=== PATIENT | male | born 1945 | race Caucasian/White ===

== ENCOUNTER → 2016-04-28 | Outpatient (CLI) | payer MEDICARE, OTHER | DX: E11.65 Type 2 diabetes mellitus with hyperglycemia (principal); E78.2 Mixed hyperlipidemia; Z79.899 Other long term (current) drug therapy ==

== ENCOUNTER 2016-09-08 08:47 | Outpatient (CLI) | payer MEDICARE, OTHER ==
[2016-09-08 13:00] LABS: HEMOGLOBIN A1C 0.92 g/dL
== END 2016-09-08 08:48 | disposition home or self-care (01) ==
LOC: LAB.R 08:47
PROVIDERS: ATTEND Internal Medicine
DX: E11.9 Type 2 diabetes mellitus without complications (principal)
CPT/HCPCS: 83036

== ENCOUNTER 2016-10-20 08:00 | Outpatient (CLI) | payer MEDICARE ==
[2016-10-20 19:33] LABS: BUN - BLOOD UREA NITROGEN 14 mg/dL (6-20); CALCIUM 9.3 mg/dL (8.5-10.3); CARBON DIOXIDE - CO2 25 mmol/L (21-32); CHLORIDE 105 mmol/L (101-111); CHOL/HDL RATIO 4.3 (<5.0); CHOLESTEROL 197 mg/dL; GFR - MDRD 74 (>89); GLUCOSE 142 mg/dL (70-100); HDL CHOLESTEROL 46 mg/dL; LDL CHOLESTEROL,DIRECT 119 mg/dL; LDL/HDL RATIO 2.5 (<3.6); POTASSIUM 4.3 mmol/L (3.5-5.0); SODIUM 138 mmol/L (135-145); TRIGLYCERIDES 174 mg/dL; VLDL CHOLESTEROL 35 mg/dL
== END 2016-10-20 08:01 | disposition home or self-care (01) ==
LOC: LAB.R 08:00
PROVIDERS: ATTEND Internal Medicine Cardiovascular Disease
DX: E78.5 Hyperlipidemia, unspecified (principal); Z79.899 Other long term (current) drug therapy
CPT/HCPCS: 80048; 80061; 82550; 84450; 84460

== ENCOUNTER 2016-11-16 19:45 | Outpatient (CLI) | payer MEDICARE, OTHER ==
--- NOTE | 2016-11-17 10:16 | Ultrasound Report ---
LEFT GROIN ULTRASOUND: 11/16/2016 CLINICAL INDICATION: Left groin pain. TECHNIQUE: Real-time scanning was performed with billing representative static images obtained. FINDINGS: Ultrasound of the region of pain identified by the patient was performed. There is no renae dence of a hernia. No adenopathy is identified. IMPRESSION: NO EVIDENCE OF LEFT INGUINAL OR GROIN HERNIA. NO SONOGRAPHIC ABNORMALITY IN THE REGION OF PAIN IDENTIFIED BY THE PATIENT. JOB #: [id number] EXT JOB #:[id number]
== END 2016-11-16 19:46 | disposition home or self-care (01) ==
LOC: DI 19:45
PROVIDERS: ATTEND Physician Assistant Medical
DX: R10.32 Left lower quadrant pain (principal)
CPT/HCPCS: 76857

== ENCOUNTER 2017-04-12 08:00 | Outpatient (CLI) | payer MEDICARE, OTHER ==
[2017-04-12 14:48] LABS: HEMOGLOBIN A1C 1.01 g/dL; HEMOGLOBIN A1C % 7.9 % (4.6-6.2)
== END 2017-04-12 08:01 | disposition home or self-care (01) ==
LOC: LAB.R 08:00
PROVIDERS: ATTEND Physician Assistant Medical
DX: E11.9 Type 2 diabetes mellitus without complications (principal); Z79.899 Other long term (current) drug therapy
CPT/HCPCS: 82947; 83036

== ENCOUNTER 2017-10-18 08:00 | Outpatient (CLI) | payer MEDICARE, OTHER ==
[2017-10-18 14:02] LABS: ALBUMIN 4.1 g/dL (3.2-5.5); ALBUMIN/GLOBULIN RATIO 1.4 (1.0-2.2); ALKALINE PHOSPHATASE 75 IU/L (42-121); ALT ALANINE AMINOTRANSFERASE 28 IU/L (10-60); AST ASPARTATE AMINOTRANSFERASE 29 IU/L (10-42); BILIRUBIN,TOTAL 1.3 mg/dL (0.2-1.0); BUN - BLOOD UREA NITROGEN 16 mg/dL (6-20); CARBON DIOXIDE - CO2 23 mmol/L (21-32); CHLORIDE 104 mmol/L (101-111); CHOL/HDL RATIO 3.3 (<5.0); CHOLESTEROL 136 mg/dL; GFR - MDRD 74 (>89); GLUCOSE 144 mg/dL (70-100); HDL CHOLESTEROL 41 mg/dL; LDL CHOLESTEROL,CALCULATED 71 mg/dL; LDL/HDL RATIO 1.7 (<3.6); SODIUM 135 mmol/L (135-145); VLDL CHOLESTEROL 24 mg/dL
[2017-10-18 14:07] LABS: BASOPHILS % (AUTO) 0.4 %; EOSINOPHILS # (AUTO) 0.1 10^3/uL (0.0-0.7); EOSINOPHILS % (AUTO) 2.8 %; HGB - HEMOGLOBIN 15.6 g/dL (14.0-18.0); LYMPHOCYTES # (AUTO) 1.4 10^3/uL (1.5-3.5); LYMPHOCYTES % (AUTO) 27.3 %; MEAN CORPUSCULAR HEMOGLOBIN 30.8 pg (27.0-31.0); MEAN CORPUSCULAR HGB CONC 34.2 g/dL (32.0-36.0); MEAN CORPUSCULAR VOLUME 90.2 fL (80.0-94.0); MONOCYTES # (AUTO) 0.6 10^3/uL (0.0-1.0); MONOCYTES % (AUTO) 11.6 %; NEUTROPHILS # (AUTO) 2.9 10^3/uL (1.5-6.6); NEUTROPHILS % (AUTO) 57.9 %; PLT - PLATELET COUNT 274 10^3/uL (130-450); RED BLOOD COUNT 5.08 10^6/uL (4.70-6.10); RED CELL DISTRIBUTION WIDTH 12.6 % (12.0-15.0)
[2017-10-18 14:53] LABS: HB2 TOTAL 16.9 g/dL; HEMOGLOBIN A1C 1.05 g/dL; HEMOGLOBIN A1C % 7.8 % (4.6-6.2)
== END 2017-10-18 08:01 | disposition home or self-care (01) ==
LOC: LAB.R 08:00
PROVIDERS: ATTEND Internal Medicine
DX: I25.10 Atherosclerotic heart disease of native coronary artery without angina pectoris (principal); R03.0 Elevated blood-pressure reading, without diagnosis of hypertension; E78.5 Hyperlipidemia, unspecified; Z79.899 Other long term (current) drug therapy; E11.9 Type 2 diabetes mellitus without complications; Z12.5 Encounter for screening for malignant neoplasm of prostate
CPT/HCPCS: 80053; 80061; 83036; 84443; 85025; G0103; 83721; 84153

== ENCOUNTER 2018-02-15 08:41 | Outpatient (CLI) | payer MEDICARE, OTHER ==
[2018-02-15 16:58] LABS: HB2 TOTAL 17.3 g/dL; HEMOGLOBIN A1C 1.08 g/dL; HEMOGLOBIN A1C % 7.9 % (4.6-6.2)
== END 2018-02-15 08:42 | disposition home or self-care (01) ==
LOC: LAB.R 08:41
PROVIDERS: ATTEND Internal Medicine
DX: E11.9 Type 2 diabetes mellitus without complications (principal)
CPT/HCPCS: 83036

== ENCOUNTER 2018-05-17 08:00 | Outpatient (CLI) | payer MEDICARE, OTHER ==
[2018-05-17 14:09] LABS: HB2 TOTAL 17.5 g/dL; HEMOGLOBIN A1C 1.1 g/dL; HEMOGLOBIN A1C % 7.9 % (4.6-6.2)
[2018-05-17 14:13] LABS: ALT ALANINE AMINOTRANSFERASE 34 IU/L (10-60); AST ASPARTATE AMINOTRANSFERASE 27 IU/L (10-42); CHOL/HDL RATIO 3.8 (<5.0); CHOLESTEROL 145 mg/dL; GLUCOSE 158 mg/dL (70-100); HDL CHOLESTEROL 38 mg/dL; LDL CHOLESTEROL,CALCULATED 76 mg/dL; VLDL CHOLESTEROL 31 mg/dL
== END 2018-05-17 23:59 | disposition home or self-care (01) ==
LOC: LAB.R 08:00
PROVIDERS: ATTEND Internal Medicine
DX: I25.10 Atherosclerotic heart disease of native coronary artery without angina pectoris (principal); E11.9 Type 2 diabetes mellitus without complications
CPT/HCPCS: 80061; 82947; 83036; 83721; 84450; 84460

== ENCOUNTER 2018-07-18 13:45 | Outpatient (CLI) | payer MEDICARE, OTHER | END 2018-07-18 13:46 | disposition home or self-care (01) | LOC: NS 13:45 | PROVIDERS: ATTEND Physician Assistant | DX: Z71.3 Dietary counseling and surveillance (principal); E11.9 Type 2 diabetes mellitus without complications | CPT/HCPCS: 97802 ==

== ENCOUNTER 2020-01-15 16:02 | Outpatient (CLI) | payer MEDICARE, OTHER ==
--- NOTE | 2020-01-15 16:53 | XRAY Report ---
PROCEDURE: Shoulder 3 View RT INDICATIONS: PAIN IN UNSPECIFIED SHOULDER TECHNIQUE: 3 views of the shoulder were acquired. COMPARISON: None. FINDINGS: Bones: No fractures or dislocations. No suspicious bony lesions. Visualized ribs appear intact. M oderate acromioclavicular degenerative narrowing. Soft tissues: No suspicious soft tissue calcifications. IMPRESSION: Moderate acromioclavicular degenerative narrowing. Reviewed by: Arely Jordan MD on 01/15/2020 4:52 PM PDT Approved by: Arely Jordan MD on 01/15/2020 4:52 PM PDT Station ID: [id number]
--- NOTE | 2020-01-15 16:54 | XRAY Report ---
PROCEDURE: Cervical Spine 2 View INDICATIONS: PAIN IN UNSPECIFIED SHOULDER TECHNIQUE: 3 view(s) of the cervical spine were acquired. COMPARISON: None. FINDINGS: Bones: No fractures or dislocations to the C7-T1 level. The lateral masses of C1 appear intact on t he odontoid view. No suspicious bony lesions. There is trace retrolisthesis of C3 on C4. Severe dis c space narrowing is present at C3-4. Intimal osteophytes are noted at C3. Multilevel uncovertebral h ypertrophy is present. Soft tissues: No prevertebral soft tissue swelling. IMPRESSION: Degenerative changes most notable at C3-4 as above. Reviewed by: Arely Jordan MD on 01/15/2020 4:53 PM PDT Approved by: Arely Jordan MD on 01/15/2020 4:53 PM PDT Station ID: [id number]
--- NOTE | 2020-01-15 17:11 | XRAY Report ---
PROCEDURE: Thoracic Spine 2 View INDICATIONS: PAIN IN UNSPECIFIED SHOULDER TECHNIQUE: 3 views of the thoracic spine were acquired. COMPARISON: None. FINDINGS: Bones: No fractures or dislocations. Degenerative endplate changes throughout thoracic spine is seen . No suspicious bony lesions. 12 pairs of ribs are noted, and appear intact where visualized. Soft tissues: No paravertebral stripe thickening. IMPRESSION: Degenerative disc disease throughout thoracic spine. No acute compression fracture or spondylolisthes is. Reviewed by: Mahendra Moser MD on 01/15/2020 4:09 PM [facility] Approved by: Mahendra Moser MD on 01/15/2020 4:09 PM [facility] Station ID: [id number]
== END 2020-01-15 16:03 | disposition home or self-care (01) ==
LOC: DI 16:02
PROVIDERS: ATTEND Nurse Practitioner Family
DX: M19.011 Primary osteoarthritis, right shoulder (principal); M47.812 Spondylosis without myelopathy or radiculopathy, cervical region; M51.34 Other intervertebral disc degeneration, thoracic region
CPT/HCPCS: 72040; 72070